=== PATIENT | female | born 1980 | race Caucasian/White ===

== ENCOUNTER 2022-02-16 22:57 | Inpatient (IN) ==
[2022-02-17] MEDS ORDERED: Ondansetron ODT 4 MG TAB.RAPDIS SL ONE (00:09)
[2022-02-17 02:40] LABS: Influenza A PCR Negative (Negative); Influenza B PCR Negative (Negative); Resp. Syncytial Virus PCR Negative (Negative)
[2022-02-17 02:43] LABS: SARS-CoV-2 by PCR (In House) Negative (Negative)
[2022-02-17] MEDS ORDERED: Haloperidol Lactate 5 MG/ML VIAL IM PRN (02:54)
[2022-02-17] MEDS ORDERED: haloperidoL 5 MG TABLET PO PRN (02:54)
[2022-02-17] MEDS ORDERED: Mag Hydrox/Al Hydrox/Simeth 30 ML UDC PO PRN (02:54)
[2022-02-17] MEDS ORDERED: Acetaminophen 325 MG TABLET PO PRN (02:54)
[2022-02-17] MEDS: Ondansetron ODT 4 MG TAB.RAPDIS SL SCH ×3 (08:02→18:49)
[2022-02-17] MEDS ORDERED: *HR* Promethazine 25 MG/ML VIAL IM PRN (10:09)
[2022-02-17] MEDS: Cholecalciferol (D-3) 1,000 UNIT (25MCG) TABLET PO SCH (13:44)
[2022-02-17] MEDS: lisinopriL 20 MG TABLET PO SCH (13:44)
[2022-02-17] MEDS: hydrOXYzine pamoate 25 MG CAPSULE PO PRN ×2 (13:46→21:10)
[2022-02-17] MEDS ORDERED: Prochlorperazine 10 MG/2 ML VIAL IM PRN (14:04)
[2022-02-17] MEDS: Fluconazole 100 MG TABLET PO SCH (17:56)
[2022-02-17] MEDS: lamoTRIgine 100 MG TABLET PO SCH ×2 (17:57→22:00)
[2022-02-17] MEDS: FLUoxetine 20 MG CAPSULE PO SCH (17:57)
[2022-02-17] MEDS: Gabapentin 300 MG CAPSULE PO SCH ×2 (18:49→21:59)
[2022-02-17] MEDS: traZODone 50 MG TABLET PO SCH (21:59)
[2022-02-17] MEDS: Melatonin 3 MG TABLET PO SCH (21:59)
[2022-02-17] MEDS: QUEtiapine Fumarate 100 MG TABLET PO SCH (21:59)
[2022-02-18] MEDS: Ondansetron ODT 4 MG TAB.RAPDIS SL SCH ×4 (04:46→16:49)
[2022-02-18] MEDS: lisinopriL 20 MG TABLET PO SCH (08:45)
[2022-02-18] MEDS: Cholecalciferol (D-3) 1,000 UNIT (25MCG) TABLET PO SCH (08:46)
[2022-02-18] MEDS: Gabapentin 300 MG CAPSULE PO SCH ×3 (08:46→22:00)
[2022-02-18] MEDS: lamoTRIgine 100 MG TABLET PO SCH ×2 (08:46→22:00)
[2022-02-18] MEDS: FLUoxetine 20 MG CAPSULE PO SCH (08:47)
[2022-02-18] MEDS: Fluconazole 100 MG TABLET PO SCH (08:47)
[2022-02-18] MEDS ORDERED: FLUoxetine 20 MG CAPSULE PO ONE (11:50)
[2022-02-18] MEDS: hydrOXYzine pamoate 25 MG CAPSULE PO PRN (11:59)
[2022-02-18] MEDS: QUEtiapine Fumarate 100 MG TABLET PO SCH (21:59)
[2022-02-18] MEDS: Melatonin 3 MG TABLET PO SCH (21:59)
[2022-02-18] MEDS: traZODone 50 MG TABLET PO SCH (22:00)
[2022-02-19] MEDS: Ondansetron ODT 4 MG TAB.RAPDIS SL SCH ×4 (00:59→18:25)
[2022-02-19] MEDS: Gabapentin 300 MG CAPSULE PO SCH ×3 (08:00→22:28)
[2022-02-19] MEDS: lisinopriL 20 MG TABLET PO SCH (08:00)
[2022-02-19] MEDS: lamoTRIgine 100 MG TABLET PO SCH ×2 (08:00→22:29)
[2022-02-19] MEDS: FLUoxetine 20 MG CAPSULE PO SCH (08:00)
[2022-02-19] MEDS: Cholecalciferol (D-3) 1,000 UNIT (25MCG) TABLET PO SCH (08:01)
[2022-02-19] MEDS: Fluconazole 100 MG TABLET PO SCH (08:01)
[2022-02-19] MEDS: Melatonin 3 MG TABLET PO SCH (22:28)
[2022-02-19] MEDS: QUEtiapine Fumarate 300 MG TABLET PO SCH (22:29)
[2022-02-19] MEDS: traZODone 50 MG TABLET PO SCH (22:29)
[2022-02-20] MEDS: Ondansetron ODT 4 MG TAB.RAPDIS SL SCH ×4 (03:02→17:04)
[2022-02-20] MEDS: lamoTRIgine 100 MG TABLET PO SCH ×2 (08:44→21:52)
[2022-02-20] MEDS: lisinopriL 20 MG TABLET PO SCH (08:45)
[2022-02-20] MEDS: Fluconazole 100 MG TABLET PO SCH (08:45)
[2022-02-20] MEDS: Gabapentin 300 MG CAPSULE PO SCH ×3 (08:45→21:52)
[2022-02-20] MEDS: Cholecalciferol (D-3) 1,000 UNIT (25MCG) TABLET PO SCH (08:47)
[2022-02-20] MEDS: FLUoxetine 20 MG CAPSULE PO SCH (08:50)
[2022-02-20] MEDS: Ketorolac 30 MG/ML VIAL IM PRN (09:40)
[2022-02-20] MEDS: hydrOXYzine pamoate 25 MG CAPSULE PO PRN (09:40)
[2022-02-20] MEDS ORDERED: Menthol 1 EACH LOZENGE MM PRN (10:45)
[2022-02-20] MEDS: QUEtiapine Fumarate 25 MG TABLET PO PRN (12:47)
[2022-02-20] MEDS: traZODone 50 MG TABLET PO SCH (21:51)
[2022-02-20] MEDS: QUEtiapine Fumarate 300 MG TABLET PO SCH (21:51)
[2022-02-20] MEDS: Melatonin 3 MG TABLET PO SCH (21:52)
[2022-02-21] MEDS: Ondansetron ODT 4 MG TAB.RAPDIS SL SCH ×4 (04:04→17:15)
[2022-02-21] MEDS: Cholecalciferol (D-3) 1,000 UNIT (25MCG) TABLET PO SCH (08:27)
[2022-02-21] MEDS: Fluconazole 100 MG TABLET PO SCH (08:28)
[2022-02-21] MEDS: Gabapentin 300 MG CAPSULE PO SCH ×3 (08:28→21:50)
[2022-02-21] MEDS: lisinopriL 20 MG TABLET PO SCH (08:29)
[2022-02-21] MEDS: FLUoxetine 20 MG CAPSULE PO SCH (08:29)
[2022-02-21] MEDS: lamoTRIgine 100 MG TABLET PO SCH ×2 (08:30→21:50)
[2022-02-21] MEDS: hydrOXYzine pamoate 25 MG CAPSULE PO PRN ×2 (15:25→21:52)
[2022-02-21] MEDS: QUEtiapine Fumarate 300 MG TABLET PO SCH (21:50)
[2022-02-21] MEDS: Melatonin 3 MG TABLET PO SCH (21:50)
[2022-02-21] MEDS: traZODone 50 MG TABLET PO SCH (21:50)
[2022-02-22] MEDS: Ondansetron ODT 4 MG TAB.RAPDIS SL SCH ×2 (01:17→06:52)
[2022-02-22] MEDS: Cholecalciferol (D-3) 1,000 UNIT (25MCG) TABLET PO SCH (08:15)
[2022-02-22] MEDS: Fluconazole 100 MG TABLET PO SCH (08:16)
[2022-02-22] MEDS: lamoTRIgine 100 MG TABLET PO SCH ×2 (08:17→21:44)
[2022-02-22] MEDS: Gabapentin 300 MG CAPSULE PO SCH ×3 (08:19→21:43)
[2022-02-22] MEDS: FLUoxetine 20 MG CAPSULE PO SCH (08:19)
[2022-02-22] MEDS: lisinopriL 20 MG TABLET PO SCH (08:20)
[2022-02-22] MEDS: Ketorolac 30 MG/ML VIAL IM PRN (10:26)
[2022-02-22] MEDS ORDERED: Ondansetron ODT 4 MG TAB.RAPDIS SL PRN (11:44)
[2022-02-22] MEDS: QUEtiapine Fumarate 300 MG TABLET PO SCH (21:43)
[2022-02-22] MEDS: traZODone 50 MG TABLET PO SCH (21:43)
[2022-02-22] MEDS: Melatonin 3 MG TABLET PO SCH (21:44)
[2022-02-23] MEDS: QUEtiapine Fumarate 25 MG TABLET PO PRN (04:29)
[2022-02-23] MEDS: lamoTRIgine 100 MG TABLET PO SCH (08:09)
[2022-02-23] MEDS: FLUoxetine 20 MG CAPSULE PO SCH (08:10)
[2022-02-23] MEDS: Gabapentin 300 MG CAPSULE PO SCH ×2 (08:11→14:36)
[2022-02-23] MEDS: Fluconazole 100 MG TABLET PO SCH (08:13)
[2022-02-23] MEDS: Cholecalciferol (D-3) 1,000 UNIT (25MCG) TABLET PO SCH (08:13)
[2022-02-23] MEDS: lisinopriL 20 MG TABLET PO SCH (08:13)
[2022-02-23 09:25] VITALS: BP 132/78; PULSE 71; TEMP 97.4; O2SAT 99
[2022-02-23] MEDS ORDERED: FLU Vac QV 21-22 (6Month+)/PF 0.5 ML SYRINGE IM ONE (11:29)
[2022-02-23] MEDS: hydrOXYzine pamoate 25 MG CAPSULE PO PRN (11:46)
== END 2022-02-23 17:40 | disposition home or self-care (01) | DRG 753 ==
LOC: EMEROOARM 22:57 → 1ANU 02-17 03:17
PROVIDERS: ADMIT Psychiatry & Neurology Psychiatry; ATTEND Psychiatry & Neurology Psychiatry

== ENCOUNTER 2022-03-05 02:42 | Inpatient (IN) ==
[2022-03-05 03:35] LABS: Basophils # 0.1 K/mcL (0.0-0.2); Basophils % 1.1 %; Eosinophils # 0.3 K/mcL (0.0-0.6); Eosinophils % 2.8 %; Hematocrit 37.6 % (35.3-44.9); Hemoglobin 11.5 g/dL (11.5-15.4); Immature Granulocytes % 0.3 % (0-4); Lymphocytes # 2.8 K/mcL (0.6-4.6); Lymphocytes % 30.9 %; Mean Corpuscular HGB Conc 30.6 g/dL (31.6-35.5); Mean Corpuscular Hemoglobin 27.2 pg (28.0-33.3); Mean Corpuscular Volume 88.9 fL (83.0-100.0); Mean Platelet Volume 10.9 fL (9.4-12.4); Monocytes # 0.7 K/mcL (0.0-1.3); Monocytes % 7.5 %; Neutrophils # 5.2 K/mcL (1.6-8.9); Platelet Count 375 K/mcL (140-400); Red Blood Count 4.23 M/mcL (3.82-4.97); Red Cell Distribution Width 13.7 % (11.5-14.5); Segmented Neutrophils % 57.4 %; White Blood Count 9.1 K/mcL (4.3-11.1)
[2022-03-05 03:40] LABS: Amphetamine Screen,Urine Negative ng/mL (Cutoff=1000); Barbiturate Screen,Urine Negative ng/mL (Cutoff=200); Benzodiazepines Screen,Urine Negative ng/mL (Cutoff=200); Bilirubin,Urine Negative (Negative); Blood,Urine Negative (Negative); Cannabinoid Screen,Urine Negative ng/mL (Cutoff = 50); Clarity,Urine Turbid (Clear); Cocaine Screen,Urine Negative ng/mL (Cutoff= 300); Color,Urine Light-Yellow (Yellow); Glucose,Urine (UA) Normal (Normal); Ketones,Urine Negative (Negative); Leukocyte Esterase,Urine Negative (Negative); Mucus,Urine Few per lpf (None-Few); Nitrite,Urine Negative (Negative); Opiate Screen,Urine Negative ng/mL (Cutoff=300); Phencyclidine Screen,Urine Negative ng/mL (Cutoff=25); Protein,Urine 30 mg/dL (Neg-Trace); RBC,Urine 0-3 per hpf (0-3); Specific Gravity,Urine 1.019 (1.010-1.025); Squamous Epithelial Cell,Urine Moderate per hpf (None-Few); Urobilinogen,Urine Normal (Normal)
[2022-03-05 03:54] LABS: Acetaminophen < 10 mcg/mL (10-20); BUN/Creatinine Ratio 13 (6-26); Blood Urea Nitrogen 11 mg/dL (6-20); Calcium 9.1 mg/dL (8.6-10.3); Carbon Dioxide 27 mEq/L (23-29); Chloride 104 mEq/L (98-107); Chol/HDL Ratio 2.6 (0-4.9); Cholesterol 163 mg/dL (< 200); Ethanol < 10 mg/dL (Less than 10); Glucose 136 mg/dL (70-105); HDL Cholesterol 63 mg/dL (40-59); LDL Cholesterol,Calculated 68 mg/dL (< 100); Osmolality,Calculated 287 (280-300); Potassium 3.7 mEq/L (3.5-5.1); Salicylate < 2.5 mg/dL (15.0-30.0); Sodium 138 mEq/L (136-145); Triglycerides 158 mg/dL (< 150); eGFR For African Americans > 60 (> 60); eGFR For Non-African Americans > 60 (> 60)
[2022-03-05 04:14] LABS: Estimated Average Glucose 126 mg/dl
[2022-03-05 04:15] LABS: Influenza A PCR Negative (Negative); Influenza B PCR Negative (Negative); Resp. Syncytial Virus PCR Negative (Negative)
[2022-03-05 04:19] LABS: SARS-CoV-2 by PCR (In House) Negative (Negative)
[2022-03-05] MEDS ORDERED: Ondansetron ODT 4 MG TAB.RAPDIS SL ONE (04:21)
[2022-03-05] MEDS ORDERED: haloperidoL 5 MG TABLET PO PRN (05:46)
[2022-03-05] MEDS ORDERED: traZODone 50 MG TABLET PO PRN (05:46)
[2022-03-05] MEDS ORDERED: *HR* LORazepam 2 MG/ML VIAL IM PRN (05:46)
[2022-03-05] MEDS ORDERED: MOM Conc 10 ML UD.LIQ PO PRN (05:46)
[2022-03-05] MEDS ORDERED: Haloperidol Lactate 5 MG/ML VIAL IM PRN (05:46)
[2022-03-05] MEDS ORDERED: *HR* LORazepam 1 MG TABLET PO PRN (05:46)
[2022-03-05] MEDS ORDERED: Mag Hydrox/Al Hydrox/Simeth 30 ML UDC PO PRN (05:46)
[2022-03-05] MEDS ORDERED: Acetaminophen 325 MG TABLET PO PRN (06:00)
[2022-03-05] MEDS ORDERED: Budesonide/Formoterol 160/4.5 1 PUFF INH IH PRN (11:24)
[2022-03-05] MEDS ORDERED: Ondansetron ODT 4 MG TAB.RAPDIS SL PRN (11:36)
[2022-03-05] MEDS ORDERED: Ketorolac 30 MG/ML VIAL IM PRN (11:36)
[2022-03-05] MEDS: lamoTRIgine 100 MG TABLET PO SCH ×2 (12:36→21:23)
[2022-03-05] MEDS: FLUoxetine 20 MG CAPSULE PO SCH (12:36)
[2022-03-05] MEDS: hydrOXYzine pamoate 25 MG CAPSULE PO PRN ×2 (14:05→18:53)
[2022-03-05] MEDS ORDERED: QUEtiapine Fumarate 100 MG TABLET PO SCH (21:00)
[2022-03-05] MEDS: QUEtiapine Fumarate 300 MG TABLET PO SCH (21:23)
[2022-03-05] MEDS: Melatonin 3 MG TABLET PO SCH (21:23)
[2022-03-05] MEDS: traZODone 50 MG TABLET PO SCH (21:24)
[2022-03-06] MEDS: lisinopriL 20 MG TABLET PO SCH (08:41)
[2022-03-06] MEDS: hydrOXYzine pamoate 25 MG CAPSULE PO PRN ×2 (08:41→19:04)
[2022-03-06] MEDS: FLUoxetine 20 MG CAPSULE PO SCH (08:42)
[2022-03-06] MEDS: lamoTRIgine 100 MG TABLET PO SCH ×2 (08:42→20:22)
[2022-03-06] MEDS: traZODone 50 MG TABLET PO SCH (20:22)
[2022-03-06] MEDS: QUEtiapine Fumarate 300 MG TABLET PO SCH (20:22)
[2022-03-06] MEDS: Melatonin 3 MG TABLET PO SCH (20:22)
[2022-03-07] MEDS: FLUoxetine 20 MG CAPSULE PO SCH (09:18)
[2022-03-07] MEDS: lisinopriL 20 MG TABLET PO SCH (09:18)
[2022-03-07] MEDS: lamoTRIgine 100 MG TABLET PO SCH ×2 (09:19→20:40)
[2022-03-07] MEDS: hydrOXYzine pamoate 25 MG CAPSULE PO PRN ×2 (09:23→20:40)
[2022-03-07] MEDS: QUEtiapine Fumarate 25 MG TABLET PO PRN (16:48)
[2022-03-07] MEDS: Melatonin 3 MG TABLET PO SCH (20:39)
[2022-03-07] MEDS: traZODone 50 MG TABLET PO SCH (20:39)
[2022-03-07] MEDS: QUEtiapine Fumarate 300 MG TABLET PO SCH (20:40)
[2022-03-08] MEDS: lamoTRIgine 100 MG TABLET PO SCH ×2 (09:00→20:55)
[2022-03-08] MEDS: QUEtiapine Fumarate 25 MG TABLET PO PRN ×2 (09:00→17:33)
[2022-03-08] MEDS: lisinopriL 20 MG TABLET PO SCH (09:02)
[2022-03-08] MEDS: FLUoxetine 20 MG CAPSULE PO SCH (09:03)
[2022-03-08] MEDS: hydrOXYzine pamoate 25 MG CAPSULE PO PRN (10:33)
[2022-03-08] MEDS: traZODone 50 MG TABLET PO SCH (20:54)
[2022-03-08] MEDS: Melatonin 3 MG TABLET PO SCH (20:55)
[2022-03-08] MEDS: QUEtiapine Fumarate 300 MG TABLET PO SCH (20:55)
[2022-03-09] MEDS: lisinopriL 20 MG TABLET PO SCH (08:11)
[2022-03-09] MEDS: FLUoxetine 20 MG CAPSULE PO SCH (08:11)
[2022-03-09] MEDS: lamoTRIgine 100 MG TABLET PO SCH ×2 (08:12→21:03)
[2022-03-09] MEDS: QUEtiapine Fumarate 25 MG TABLET PO PRN ×2 (09:17→14:59)
[2022-03-09] MEDS: traZODone 50 MG TABLET PO SCH (21:03)
[2022-03-09] MEDS: QUEtiapine Fumarate 300 MG TABLET PO SCH (21:03)
[2022-03-09] MEDS: Melatonin 3 MG TABLET PO SCH (21:03)
[2022-03-10] MEDS: lisinopriL 20 MG TABLET PO SCH (09:56)
[2022-03-10] MEDS: lamoTRIgine 100 MG TABLET PO SCH ×2 (09:56→20:33)
[2022-03-10] MEDS: FLUoxetine 20 MG CAPSULE PO SCH (09:56)
[2022-03-10] MEDS: hydrOXYzine pamoate 25 MG CAPSULE PO PRN ×2 (10:00→20:33)
[2022-03-10] MEDS: QUEtiapine Fumarate 300 MG TABLET PO SCH (20:33)
[2022-03-10] MEDS: traZODone 50 MG TABLET PO SCH (20:33)
[2022-03-10] MEDS: Melatonin 3 MG TABLET PO SCH (20:33)
[2022-03-11] MEDS: FLUoxetine 20 MG CAPSULE PO SCH (08:35)
[2022-03-11] MEDS: lisinopriL 20 MG TABLET PO SCH (08:35)
[2022-03-11] MEDS: lamoTRIgine 100 MG TABLET PO SCH (08:35)
[2022-03-11] MEDS: hydrOXYzine pamoate 25 MG CAPSULE PO PRN ×2 (08:37→12:18)
[2022-03-11 09:17] VITALS: BP 127/85; PULSE 97; TEMP 98; O2SAT 97
== END 2022-03-11 14:45 | disposition home or self-care (01) | DRG 753 ==
LOC: EMEROOARM 02:42 → 1ANU 05:37
PROVIDERS: ADMIT Psychiatry & Neurology Psychiatry; ATTEND Psychiatry & Neurology Psychiatry